=== PATIENT | male | born 1980 | race African-American/Black ===

== ENCOUNTER 2016-07-13 20:35 | Emergency (ER) | payer OTHER ==
[~2016-07-13] VITALS: Ht 182.9 cm; Wt 82.4 kg
[2016-07-13 20:39] VITALS: Ht 182.9 cm; Wt 82.4 kg
[2016-07-13] MEDS ORDERED: OXYCODONE HCL IR 5 MG TAB (IMMEDIATE RELEASE) PO STA (21:09)
--- NOTE | 2016-07-13 21:55 | EMERGENCY ROOM VISIT NOTE ---
ED Visit Note First contact with patient: 21:01 CHIEF COMPLAINT: Fall, right clavicle pain 2 hours HISTORY OF PRESENT ILLNESS: Patient is a [id number] 36-year-old -[place] male who is brought to the emergency department by corrections officers for evaluation of right clavicle pain. Patient is an inmate at [facility]. He was playing football about 2 hours ago when he fell, landing on the floor, directly on the right shoulder with immediate onset of pain in his mid clavicular region. He was evaluated by medical staff at the corrections facility, placed in a sling, and sent to the emergency department for x-rays. He rates his discomfort a 2/10. He did not have any medications for pain. He denies any numbness, tickling or weakness radiating to the right upper extremity. He denies any chest pain or shortness of breath. Pain is worse with certain movements of the right shoulder. He denies any prior history of injuries to this shoulder. REVIEW OF SYSTEMS: Review of systems as per HPI. All other systems reviewed were negative. At least 6 systems reviewed. PMH: Electronic medical records are reviewed and summarized as above/below. See Problem List. SOCIAL HISTORY: Patient is presently incarcerated. He is a smoker. PHYSICAL EXAM: Vital Signs: Reviewed Nurse's notes. CONSTITUTIONAL: Patient is a well-appearing 36-year-old -[place] male who is awake and alert and in mild distress due to his clavicle pain. HEART: Regular rate and rhythm. LUNGS: Clear to auscultation and breath sounds equal, no wheezes, rales, or rhonchi. SKIN: Normal. MUSCULOSKELETAL: The right clavicle is deformed in its mid portion and markedly tender. There is no tenting of the skin or break in the skin. EMERGENCY DEPARTMENT COURSE: X-rays of the right clavicle were obtained and consistent with a comminuted fracture.. Patient was given oxycodone 10 mg orally and ice was applied to the right upper extremity. Patient was fitted with a shoulder immobilizer. Conservative care measures were discussed. He was discharged back to the correctional facility in good condition. Differential diagnosis includes fracture, sprain, contusion, shoulder dislocation, among others. RIGHT CLAVICLE 2 VIEWS CLINICAL HISTORY: Right shoulder injury. FINDINGS: 2 views of the right clavicle are obtained. No prior studies are available for comparison at the time of dictation. The skeletal structures are well mineralized. There is a comminuted fracture through the mid to distal shaft of the right clavicle. There is mild depression of the distal fragment with approximately 2 cm of overriding of the largest fracture fragments. The acromioclavicular and glenohumeral joints appear maintained. Overlying soft tissue edema is noted. Partially imaged right apical lung parenchyma appears clear. IMPRESSION: Comminuted and overriding fracture through the mid to distal shaft of the right clavicle as above with overlying soft tissue edema. Current/Historical Medications No Active Prescriptions or Reported Meds Allergies Coded Allergies: No Known Allergies (Unverified , 07/13/16) Vital Signs Date Time Temp Pulse Resp B/P Pulse Ox O2 Delivery O2 Flow Rate FiO2 07/13/16 20:39 36.8 79 18 153/90 96 Room Air Medications Administered Medications (Trade) Dose Ordered Sig/Benny Route Start Time Stop Time Status Last Admin Dose Admin Oxycodone HCl (Roxicodone Immediate Rel Tab) 10 mg NOW STAT PO 07/13/16 21:09 07/13/16 21:10 DC 07/13/16 21:34 10 MG Departure Information Impression Primary Impression: Right clavicle fracture Prescriptions No Active Prescriptions or Reported Meds Patient Instructions My [facility] [place] [employer] Additional Instructions DO NOT drive, drink alcohol, operate machinery, or perform dangerous activities today. You were given medications in the ER that can affect your ability to safely function or operate a vehicle. Pain management per corrections facility. Ice compresses for 20 minutes at a time four times daily for 2-3 days. Use the sling as instructed. Remove your arm from the sling 4-6 times a day and move all the joints around to keep them loose. Rest your injury. Continue current medications. Return to the ER immediately for any numbness, tingling, severe pain, extreme swelling in the extremity or as needed. Follow-up with orthopedics for further care and evaluation of your clavicle fracture. Problem Qualifiers Primary Impression: Right clavicle fracture Encounter type: initial encounter Fracture type: closed Fracture alignment : displaced
--- NOTE | 2016-07-13 22:01 | DIAGNOSTIC IMAGING REPORT ---
RIGHT CLAVICLE 2 VIEWS CLINICAL HISTORY: Right shoulder injury. FINDINGS: 2 views of the right clavicle are obtained. No prior studies are available for comparison at the time of dictation. The skeletal structures are well mineralized. There is a comminuted fracture through the mid to distal shaft of the right clavicle. There is mild depression of the distal fragment with approximately 2 cm of overriding of the largest fracture fragments. The acromioclavicular and glenohumeral joints appear maintained. Overlying soft tissue edema is noted. Partially imaged right apical lung parenchyma appears clear. IMPRESSION: Comminuted and overriding fracture through the mid to distal shaft of the right clavicle as above with overlying soft tissue edema. Electronically signed by: Jesus Casper M.D. 07/13/2016 9:59 PM Dictated Date/Time: 07/13/2016 9:58 PM
[2016-07-13 22:29] VITALS: BP 144/88; PULSE 71; TEMP 36.8; O2SAT 96
== END 2016-07-13 22:30 ==
LOC: C.EDB 20:39 → C.EDD 22:30
DX: S42.001A Fracture of unspecified part of right clavicle, initial encounter for closed fracture (principal); W19.XXXA Unspecified fall, initial encounter; F17.200 Nicotine dependence, unspecified, uncomplicated